=== PATIENT | female | born 1945 | race Caucasian/White ===

== ENCOUNTER 2019-10-28 21:18 | Emergency (ER) | payer OTHER ==
[~2019-10-28] VITALS: Ht 175.3 cm; Wt 61.2 kg
[2019-10-28] MEDS ORDERED: PROAIR HFA8.5 GM INH (21:35)
[2019-10-28 22:13] LABS: ABSOLUTE EOSINOPHILS 0.1 thou/uL (0.0-0.7); ABSOLUTE LYMPHOCYTES 1.2 thou/uL (0.8-5.3); ABSOLUTE MONOCYTES 0.8 thou/uL (0.0-1.2); ABSOLUTE NEUTROPHILS 4.6 thou/uL (1.6-8.1); BASOPHILS 0.2 %; EOSINOPHILS 1.8 %; HEMATOCRIT 49.3 % (37.0-47.0); HEMOGLOBIN 16.9 gm/dL (12.0-15.0); LYMPHOCYTES 17.4 %; MCH 32.1 pg (26.0-34.0); MCHC 34.3 g/dL (28.0-37.0); MCV 93.6 fL (80.0-100.0); MONOCYTES 12.6 %; MPV 10.3 fl. (7.2-11.1); NUCLEATED RBCS 0 /100WBC; PLATELET COUNT* 231 thou/uL (150-400); RBC 5.26 mil/uL (4.20-5.00); RDW-CV 13.4 % (10.5-14.5); WBC 6.7 thou/uL (4.0-11.0)
[2019-10-28 22:20] LABS: CALCIUM 9.2 mg/dL (8.5-10.1); CREATININE 0.8 mg/dL (0.6-1.3); POTASSIUM 3.8 mmol/L (3.5-5.1)
[2019-10-28 22:21] LABS: PROTIME 10.1 Seconds (9.20-11.50)
[2019-10-28 22:31] LABS: ALBUMIN 3.8 g/dL (3.4-5.0); TOTAL BILIRUBIN 0.6 mg/dL (<0.1-1.0); TOTAL PROTEIN 7.7 g/dL (6.4-8.2)
[2019-10-28] MEDS ORDERED: VALACYCLOVIR1000 MG PO (22:49)
[2019-10-28] MEDS ORDERED: PREDNISONE 5 MG5 MG PO (22:49)
[2019-10-28] MEDS ORDERED: AZITHROMYCIN 2250 MG PO (22:49)
[2019-10-28 23:01] VITALS: BP 139/77
--- NOTE | 2019-10-29 13:29 | EKG ---
[place] [address] ELECTROCARDIOGRAM REPORT Name: CARLTON COX Room: [facility]#: [id number] Admission: 10/28/19 Attend Phys: Discharge: 10/28/19 Date of : 49 Report #: [id number] THIS REPORT FOR: //name// [facility] ED Test Date: 2019-10-28 Test Time: 21:35:08 Pat Name: CARLTON COX Department: Room: Gender: F Sex Therapist: : 1945 Requested By: Luis Thomson Order Number: [id number] MD: Alphonso Gomez Measurements Intervals [place] Rate: 115 P: 77 MD: 166 QRS: 64 QRSD: 90 T: 51 QT: 333 QTc: 461 Interpretive Statements Sinus tachycardia Biatrial enlargement Baseline wander in lead(s) V4,V5 No previous ECG available for comparison Electronically Signed On 10-29-2019 13:28:32 JAW SKINNER by Alphonso Gomez [email or web address] <ELECTRONICALLY SIGNED> By: Alphonso Gomez MD, [facility] 10/29/19 [id number] 34 Alphonso Gomez MD, FACC /EPI
== END 2019-10-28 23:02 | disposition home or self-care (01) ==
LOC: M.ERS 21:18
PROVIDERS: Emergency Medicine
DX: B02.9 Zoster without complications (principal); J40 Bronchitis, not specified as acute or chronic; F17.210 Nicotine dependence, cigarettes, uncomplicated; Z88.2 Allergy status to sulfonamides